=== PATIENT | female | born 1940 | race Caucasian/White ===

== ENCOUNTER 2017-10-05 07:00 | Inpatient (IN) | payer OTHER, MEDICARE ==
[~2017-10-05] VITALS: Ht 157.5 cm; Wt 51.3 kg
[~2017-10-05 07:00] MED LIST: ASPIRIN EC81 M1 PO; FOLIC ACID1 M1 PO; FOSAMAX70 M1 PO; METAMUCIL PACK3.4 GM PO; METHOTREXATE2.5 M2 PO; MULTIVITAMINS1 EAC9 PO; PLAQUENIL200 M1 PO; PRAVACHOL20 M2 PO; VITAMIN D3400 UNI1 PO
--- NOTE | 2017-10-10 11:16 | Admission Core Measures ---
Acute Coronary Syndrome (CM) ACS Core Measures Acute Coronary Syndrome Diagnosis No Congestive Heart Failure (NEW) CHF Core Measures Congestive Heart Failure Diagnosis No Cerebrovascular Accident (NEW) CVA Core Measures CVA/TIA Diagnosis No Venous Thromboembolism VTE Core Erin (View Protocol) VTE Risk Factors Surgery No Mechanical VTE Prophylaxis d/t N/A MechProphylax Ordered No VTE Pharm Prophylaxis d/t NA PharmProphylax ordered Problem List As ranked by this Provider includes Assessment & Plan 1. Rectal prolapse HOME MEDS Home Med List Alendronate Sodium (Fosamax) 70 MG TABLET 1 TAB PO QW OSTEOPORSIS (Reported) Aspirin (Ecotrin*) 81 MG TABLET.DR 1 TAB PO DAILY SUPPLEMENT (Reported) Cholecalciferol (Vitamin D3) (Vitamin D3) 400 UNIT TABLET 2 TAB PO DAILY SUPPLEMENT (Reported) Folic Acid 1 MG TABLET 1 TAB PO DAILY SUPPLEMENT (Reported) Hydroxychlorquine (Plaquenil) 200 MG TABLET 1 TAB PO BID ARTHRITIS (Reported) Methotrexate 2.5 MG TABLET 6 TAB PO QW ARTHRITIS (Reported) Multiple Vitamin (Multivitamins) 1 EACH TABLET 1 TAB PO DAILY SUPPLEMENT ( Reported) Pravastatin Sodium (Pravachol) 20 MG TABLET 1 TAB PO DAILY CHOLESTEROL ( Reported)
--- NOTE | 2017-10-10 11:17 | Surg Short-stay <48hrs Dis Sum ---
Visit Information Visit Dates Admission Date: 10/10/17 Discharge Date: 10/12/17 Surgical Short Stay DC Summary Admission Diagnosis: Rectal prolapse Final Diagnosis: Same s/p robotic sigmoidectomy, rectopexy Procedure(s): Robotic rectopexy with sigmoidectomy Summary/Significant Findings: Electively scheduled robotic rectopexy, sigmoidectomy on 10/10/[address] Jerez for rectal prolapse. ERAS protocol initiated preop and continued postop. Started on clears and advanced as tolerated with return of bowel function. At the time of hospital discharge, vital signs were stable, neurovascular status was intact and pain was controlled with the use of oral pain medications. Condition at Discharge: Stable Discharge Disposition: home or self care Discharge instructions provided to patient/family: Yes Post discharge follow-up plan: Follow up in 1-[address] Jerez
--- NOTE | 2017-10-10 11:52 | Operative Report ---
Operative/Inv Procedure Report Surgery Date: 10/10/17 Name of Procedure: Robotic rectopexy with sigmoidectomy Pre-Operative Diagnosis: Rectal prolapse Post-Operative Diagnosis: Rectal prolapse Estimated Blood Loss: scant Surgeon/Chronic Care Nurse: Andre Jerez Jr., DO Anesthesia: general endotracheal tube, block Monitors: Per routine Implants: None Urine Output: Adequate Drains: None Specimens: Sigmoid colon with stapler donuts Complications: None Condition: Good Operative Indication: This is a 76-year-old female who was originally referred to me for rectal pressure. Workup revealed initially internal prolapse / rectal intussusception. She stops developing full-thickness rectal prolapse. She had near constant symptoms from the prolapse while awake barely pressure and discomfort. So after discussing options we decided to proceed with proctopexy and likely sigmoidectomy. The patient underwent preoperative risk assessment and clearance. She was scheduled for surgery Operative/Procedure Note Note: On the day prior to her surgery she did a bowel prep including oral laxatives and oral antibiotics The morning of her surgery she drank 12 ounces just prior to coming to the hospital. When she arrived at the hospital she received ERAS lesions including Neurontin, Tylenol and Entereg. She was taken to the operating room and underwent induction of general anesthesia and placement of endotracheal tube. Kinney catheter was placed and she see bilateral tap blocks performed by the anesthesia department. She was converted to lithotomy position in [facility] and was secured to the bed both arms tucked. The abdomen and perineum were prepped and draped in usual fashion. We can ask the abdominal cavity using a Veress needle technique which was inserted into the midclavicular line just subcostal on the left. The robotic ports were placed in the standard fashion. #1, 2 and 3 ports were 8 mm and the #4 port was 12 mm. Additionally a peer support was placed in the right lower quadrant for the anesthesiologist assistant. The patient was placed in Trendelenburg right side down some of the bowel out of the pelvis. The robot was docked then I began the dissection. I incised the peritoneum to the right of the rectosigmoid at the sacral promontory into the avascular space of the rectum. I developed a space medially into the left ureter was identified and then I developed the space all the way down to the levators posteriorly. The lateral [place] was taken down on the right partly with electrocautery and partly with the vessel sealer and then the lateral stalks were taken down on the left in the same fashion. The anterior and was not dissected. The vascular pedicle was identified and isolated. Both ureters were identified. 3 mesenteric pedicle was then skeletonized and the vessels were taken distal to the takeoff of the left colic and it appeared also that I was leaving at least one sigmoidal branch. The vessels were divided with the robotic vessel sealer. I chose my a distal site of transection at the rectosigmoid. The mesentery was cleared here using the vessel sealing device exposing the rectal wall. A robotic 45 mm blue AMAN stapler was used to divide the bowel. Next I pulled the sigmoid down into the pelvis and marked the bowel were I felt the proximal transection should take place. A leida was performed with a 2-0 Vicryl suture. The end of the transected bowel was grasped with a lap scopic locking grasper and the robot was undocked. A 4 cm Pfannenstiel incision was placed 2 finger breadths suprapubic. After entering the peritoneal cavity a wound protector was placed. The bowel was easily pulled through this incision. Once the bowel was completely pulled through the incision I decided on my proximal site of transection just proximal/ cephalad to the suture. The mesentery was cleared here partly with electrocautery and partly ligating and dividing larger bundles of tissue. I then sharply divided the bowel in the sigmoid was removed from the field. A handsewn [place] was performed with 2-0 Prolene suture. A 25 EEA's size was chosen for the anastomosis and the anvil of the stapler was placed into the lumen of the bowel. First and was tied snugly around the PEG of the anvil in the reduced back into the abdominal cavity. The fascia at the appendiceal port was then closed. Versed the peritoneum was closed with a running 2-0 Vicryl suture and then the fascia was closed with a running 0 PDS suture. The EEA sizers and then the EEA stapler passed transanally. The stapler spike was advanced emerged to the of midline slightly posterior. The 2 ends of the stapler lap scopic we mated the stapler was completely closed and allowed to settle for 30 seconds. The stapler was armed and fired. The stapler was opened and retrieved in 2 excellent stapler donuts on the device. A rigid sigmoidoscopy was performed after filling the pelvis with sterile saline and occluding the bowel to the anastomosis. There was no evidence of air leak and from the luminal side the anastomosis appeared intact without bleeding. Next the robot was redock. The rectum was gently grasped and pulled cephalad. The rectopexy was then performed. Alternating 2-0 Vicryl and 2-0 silk sutures were placed through the right lateral stalk of the rectum. The sutures were then sewn to the sacral fascia. After placing 5 total sutures I was pleased with the rectopexy. The ports were removed under direct visualization. Robot was undocked. The Pfannenstiel incision was closed with skin nini. The port incisions were closed subcuticular 4-0 Monocryl followed by skin glue. A sterile island dressing was placed over the appendiceal vision. The patient was converted back to supine next been operating room and taken recovery area in good condition. He tolerated the procedure well and at the end of this operational all needle sponges and Schmidts were accounted for.
[2017-10-10 14:24] VITALS: BP 100/54
[2017-10-10 16:00] VITALS: BP 110/50
--- NOTE | 2017-10-10 17:44 | PN- General Surgery ---
Subjective Subjective: POST-OP NOTE No complaints. Denies pain. Tolerating sips of clears. No nausea. Tired but resting comfortably. Not yet out of bed. No dizziness. No shortness of breath. No chest pains. Objective Vital Signs and I&Os Vital Signs Date Time Temp Pulse Resp B/P B/P Pulse O2 O2 Flow FiO2 Mean Ox Delivery Rate 10/10 1430 97 Nasal 2.0L Cannula 10/10 1424 97.6 74 18 100/54 97 Nasal 2.0L Cannula Intake & Output 10/10 1600 10/10 0800 10/10 0000 10/09 1600 10/09 0800 10/09 0000 Intake Total Output Total 675 Balance -675 Output, Urine 675 Patient 113 lb Weight Weight Bed scale Measurement Method Physical Exam: General - alert. sleepy. no acute distress. Lungs - clear bilaterally. no w/r/r. Cardiac - s1s2. reg. Abdomen - soft. incisions well approximated with skin glue. dressing c/d/i. no drains. Extremities - warm bilaterally. no c/c/e. calves soft and nontender b/l. athrombics active. Current Medications: Current Medications Sig/Matias Start time Last Medication Dose Route Stop Time Status Admin Acetaminophen 1,000 MG Q6P PRN 10/10 1430 AC PO Acetaminophen 1,000 MG ONCE ONE 10/10 744 DC PO 10/10 745 Acetaminophen 1,000 MG .STK-MED ONE 10/10 722 DC IV 10/10 0624 Alvimopan 12 MG BID 10/10 2100 AC PO Alvimopan 12 MG ONCE ONE 10/10 0745 DC PO 10/10 0646 Cholecalciferol 800 IU DAILY 10/11 0900 AC PO Dexamethasone 4 MG .STK-MED ONE 10/10 722 DC IM 10/10 0624 Dexmedetomidine HCl 200 MCG .STK-MED ONE 10/10 0818 DC IV 10/10 0819 Dextrose/Sodium 1,000 ML .Q20H 10/10 1430 AC 10/10 Chloride IV 1426 Fentanyl Citrate 250 MCG .STK-MED ONE 10/10 0622 DC IM 10/10 0623 Folic Acid 1 MG DAILY 10/11 0900 AC PO Gabapentin 200 MG TID 10/10 1400 AC 10/10 PO 1626 Gabapentin 600 MG ONCE ONE 10/10 0745 DC PO 10/10 0746 Heparin Sodium 5,000 UNIT Q8 10/10 2200 AC (Porcine) SC Hydroxychloroquine 200 MG BID 10/10 2100 AC Sulfate PO Ketamine HCl 50 MG .STK-MED ONE 10/10 722 DC IM 10/11 723 Midazolam HCl 5 MG .STK-MED ONE 10/10 721 DC IM 10/10 722 Morphine Sulfate 8 MG .STK-MED ONE 10/10 721 DC IM 10/10 722 Multivitamins 1 TAB DAILY 10/11 0900 AC PO Non-Formulary 0 SEE ADMIN CRITERIA 10/10 143 CAN Medication ANY Ondansetron HCl 4 MG Q6P PRN 10/10 1430 AC IV Oxycodone HCl 5 MG Q4-6 PRN PRN 10/10 1430 AC PO Pravastatin Sodium 20 MG 1700 10/10 1700 AC 10/10 PO 1626 Psyllium Hydrophilic 1 PAC DAILY 10/11 0900 AC Mucilloid PO Assessment/Plan Assessment/Plan This 76 year old female with history of lupus is POD#0 s/p robotic rectopexy with sigmoidectomy for rectal prolapse clears as tolerated pain control as ordered, following eras protocol hep sc - dvt ppx oob/ambulation entereg BID ok to resume plaquenil for lupus d/c chirstianson in am f/u am labs d/c planning, possibly home tomorrow will d/w Core Measures Venous Thromboembolism VTE Risk Factors Surgery No Mechanical VTE Prophylaxis d/t N/A MechProphylax Ordered No VTE Pharm Prophylaxis d/t NA PharmProphylax ordered
[2017-10-10 18:00] VITALS: BP 110/50
[2017-10-10 21:38] VITALS: BP 106/62
[2017-10-11 06:44] VITALS: BP 102/62
--- NOTE | 2017-10-11 07:56 | PN- General Surgery ---
Jean Claude Gilbert 10/11/17 0735: Subjective Subjective: Patient reports mild postoperative pain. She offers no other complaints. She is tolerating clear liquids without any nausea or vomiting. She denies ambulating since surgery. She reports walking with orthodics an a cane. She reports having a liquid bm late last night. Objective Vital Signs and I&Os Vital Signs Date Time Temp Pulse Resp B/P B/P Pulse O2 O2 Flow FiO2 Mean Ox Delivery Rate 10/11 0644 98.2 78 20 102/62 99 10/11 0000 Nasal 2.0L Cannula 10/10 2138 98.1 97 18 106/62 100 Room Air 10/10 1814 Nasal 2.0L Cannula 10/10 1800 97.6 69 20 110/50 97 Nasal Cannula 10/10 1600 Nasal 2.0L Cannula 10/10 1430 97 Nasal 2.0L Cannula 10/10 1424 97.6 74 18 100/54 97 Nasal 2.0L Cannula Intake & Output 10/11 0800 10/11 0000 10/10 1600 10/10 0800 10/10 0000 10/09 1600 Intake Total 640 1050 Output Total 400 3700 675 Balance 240 -2650 -675 Intake, IV 400 350 Intake, Oral 240 700 Output, Urine 400 3700 675 Patient 113 lb Weight Weight Bed scale Measurement Method Physical Exam: Gen - resting comfortably in nad Cardiac - S1S2 noted Lungs - CTAB Abd - suprapubic dressing c/d/i, 5 lap incisions closed with internal sutures and dermabond healing well with no signs of infection, bowel sounds present, appropriately tender rupinder-incisionally, no rebound or guarding noted - christianson in place with clear urine, 400 cc in last shift Ext - alps in place, no edema or calf tenderness Current Medications: Current Medications Sig/Matias Start time Last Medication Dose Route Stop Time Status Admin Acetaminophen 1,000 MG Q6 10/11 1200 AC PO Acetaminophen 1,000 MG Q6P PRN 10/10 1430 DC PO Acetaminophen 1,000 MG ONCE ONE 10/10 0745 DC PO 10/10 0746 Alvimopan 12 MG BID 10/10 2100 AC 10/10 PO 2143 Alvimopan 12 MG ONCE ONE 10/10 0745 DC PO 10/10 0746 Cholecalciferol 800 IU DAILY 10/11 0900 AC PO Dexmedetomidine HCl 200 MCG .STK-MED ONE 10/10 0818 DC IV 10/10 0819 Dextrose/Sodium 1,000 ML .Q20H 10/10 1430 AC 10/10 Chloride IV 1426 Folic Acid 1 MG DAILY 10/11 09 AC PO Gabapentin 200 MG TID 10/10 1400 AC 10/10 PO 2143 Gabapentin 600 MG ONCE ONE 10/10 0745 DC PO 10/10 0746 Heparin Sodium 5,000 UNIT Q8 10/10 2200 AC 10/11 (Porcine) SC 0516 Hydroxychloroquine 200 MG BID 10/10 2100 AC 10/10 Sulfate PO 2142 Multivitamins 1 TAB DAILY 10/11 0900 AC PO Non-Formulary 0 SEE ADMIN CRITERIA 10/10 1430 CAN Medication ANY Ondansetron HCl 4 MG Q6P PRN 10/10 1430 AC IV Oxycodone HCl 5 MG Q4-6 PRN PRN 10/10 1430 AC 10/11 PO 0026 Pravastatin Sodium 20 MG 1700 10/10 1700 AC 10/10 PO 1626 Psyllium Hydrophilic 1 PAC DAILY 10/11 0900 AC Mucilloid PO Assessment/Plan Assessment/Plan 76 F POD 1 s/p robotic rectopexy with sigmoidectomy due to rectal prolapse, recovering well Advance to fulls, d/c IVF Pain regimen, ERSA protocol Home meds on board DVT ppx - hsq, restart asa D/c christianson F/u labs Encourage IS, ambulation Anticipate d/c within 24-48 hours Will d/w Dr. Jerez Core Measures Venous Thromboembolism VTE Risk Factors Surgery No Mechanical VTE Prophylaxis d/t N/A MechProphylax Ordered No VTE Pharm Prophylaxis d/t NA PharmProphylax ordered Andre Jerez DO 10/11/17 0817: Attending MD Review Statement Attending Statement Attending Assessment/Plan: Patient looks well postoperatively 1 Agree with PA assessment and plan DC Christianson advance to full liquids this morning DC IV fluids The patient tolerate full this morning then advanced a low fiber this afternoon Anticipate discharge home tomorrow
--- NOTE | 2017-10-11 13:25 | Patient Discharge Instructions ---
Discharge Instructions General Discharge Information You were seen/treated for: Rectal prolapse You had these procedures: Robotic rectopexy with sigmoidectomy Watch for these problems: Increased pain, fever > 101.3, chills, redness, swelling or drainage Call Surgeon to remove: [place] No bath, but you may shower: Yes Other wound care: Keep incisions clean an dry, change dressing daily as needed Diet Continue normal diet: No Recommended Diet: Low Residue Activity Full Activity/No Limits: No Activity Self Limited: Yes Pounds, do NOT lift more than: 10 (x 4 weeks) Acute Coronary Syndrome Inclusion Criteria At DC or during hospital stay patient has or had the following: ACS DIAGNOSIS No Discharge Core Measures Meds if any: Prescribed or Continued at Discharge Meds if any: NOT Prescribed or Continued at Discharge Congestive Heart Failure Inclusion Criteria At DC or during hospital stay patient has or had the following: CHF DIAGNOSIS No Discharge Core Measures Meds if any: Prescribed or Continued at Discharge Meds if any: NOT Prescribed or Continued at Discharge Cerebrovascular accident Inclusion Criteria At DC or during hospital stay patient has or had the following: CVA/TIA Diagnosis No Discharge Core Measures Meds if any: Prescribed or Continued at Discharge Meds if any: NOT Prescribed or Continued at Discharge Venous thromboembolism Inclusion Criteria VTE Diagnosis No VTE Type NONE VTE Confirmed by (Test) NONE Discharge Core Measures - Per Current guidelines, there needs to be overlap - treatment for the first 5 days of Warfarin therapy. - If discharged on Warfarin prior to 5 days of - overlap therapy, the patient will need to be - assessed for post discharge needs including - *Post discharge parental anticoagulation - *Warfarin and/or parental anticoagulation education - *Follow up date to check INR post discharge At least 5 days overlap therapy as Inpatient No Meds if any: Prescribed or Continued at Discharge Note: Overlap Therapy is Warfarin and Anticoagulant Meds if any: NOT Prescribed or Continued at Discharge
[2017-10-11 14:29] VITALS: BP 104/66
[2017-10-11 14:51] LABS: ABSOLUTE BASOPHIL COUNT 0 /CUMM (0.0-0.2); ABSOLUTE EOSINOPHIL COUNT 0 /CUMM (0.0-0.7); ABSOLUTE LYMPH COUNT 1.2 /CUMM (1.2-3.4); ABSOLUTE MONOCYTE COUNT 0.9 /CUMM (0.10-0.60); BASOPHIL % 0.2 % (0.0-2.0); EOSINOPHIL % 0 % (0-5); GRANULOCYTE % 83.6 % (42.2-75.2); HEMATOCRIT 31.7 % (37-47); MEAN CORPUSCULAR HGB 34.1 PG (27.0-31.0); MEAN CORPUSCULAR HGB CONC 34.8 G/DL (33.0-37.0); MEAN CORPUSCULAR VOLUME 97.9 FL (81.0-99.0); MEAN PLATELET VOLUME 8.4 FL (7.4-10.4); PLATELET COUNT 195 /CUMM (130-400); RBC DISTRIBUTION WIDTH 14.4 % (11.5-14.5); RED BLOOD CELL CT 3.24 /CUMM (4.20-5.40); WHITE BLOOD CELL COUNT 13.1 /CUMM (4.8-10.8)
[2017-10-11 22:34] VITALS: BP 108/61
[2017-10-12 06:30] VITALS: BP 119/68
--- NOTE | 2017-10-12 08:48 | PN- General Surgery ---
See Addendum Subjective Subjective: No events overnight. Patient states to be feeling well this am. Tolerating her low residue diet without nausea or emesis. Denies any fevers, chills, chest pain , or SOB. Voiding freely, passing flatus, and having liquid BMs. Does state she notices mild blood streaks on the toilet paper when wiping but no blood in her stool or in the toilet bowel. Ambulating with her cane. Objective Vital Signs and I&Os Vital Signs Date Time Temp Pulse Resp B/P B/P Pulse O2 O2 Flow FiO2 Mean Ox Delivery Rate 10/12 0630 98.4 77 18 119/68 99 Room Air 10/11 2234 98.5 78 20 108/61 98 Room Air 10/11 1429 98.4 78 20 104/66 94 Room Air Intake & Output 10/12 1600 10/12 0800 10/12 0000 10/11 1600 10/11 0800 10/11 0000 Intake Total 240 480 491 144 0583 Output Total 253 303 4707 Balance 240 -420 840 240 -2650 Intake, IV 100 400 350 Intake, Oral 240 480 740 240 700 Number 1 1 Bowel Movements Output, Urine [phone] Physical Exam: Afebrile, VSS. Cardiac: RRR Pulmonary: CTAB Abdominal: Incisions c/d/i, skin glue in place. Lower abdominal dressing taken down. Incision intact, nini in place, no erythema or edema. + BS, soft, non distended, mild appropriate incisional tenderness to palpation. No rebound or guarding. No LE edema. Assessment/Plan Assessment/Plan A/P: 76 y/o F POD#2 s/p robotic rectopexy with sigmoidectomy due to rectal prolapse, recovering well. - Continue low residue diet - PO pain control, ERSA protocol - Continue home medications - Encourage OOB/IS/Ambulation - Plan for d/c home this am, son will be at home with her - Follow up with Dr. Jerez in 1 week - Pt d/w Dr. Jerez who agrees with above plan Core Measures Venous Thromboembolism VTE Risk Factors Surgery No Mechanical VTE Prophylaxis d/t N/A MechProphylax Ordered No VTE Pharm Prophylaxis d/t NA PharmProphylax ordered
[2017-10-12] MEDS ORDERED: OXYCODONE HCL5 M1 PO ×2 (08:54→11:00)
== END 2017-10-12 11:44 | disposition home health service (06) | DRG 331 ==
LOC: 2NB 10-10 02:42 → SDA 10-10 02:42 → ENRESERV 10-10 11:52 → ENTRNSPT 10-10 13:49 → EDTRNSPT 10-10 13:53 → EDTRNSPTSTS 10-10 13:53 → 2NB 10-10 14:15 → CMPTRNSPT 10-10 14:19 → ENPENDDIS 10-12 09:40 → 2NB 10-12 11:44
PROVIDERS: Physician Assistant Surgical
PROC: 8E0W4CZ Robotic Assisted Procedure of Trunk Region, Percutaneous Endoscopic Approach (ICD-10-PCS; principal; 2017-10-11)
PROC: 0DJD8ZZ Inspection of Lower Intestinal Tract, Via Natural or Artificial Opening Endoscopic (ICD-10-PCS; principal; 2017-10-11)
PROC: 0DQP4ZZ Repair Rectum, Percutaneous Endoscopic Approach (ICD-10-PCS; principal; 2017-10-11)
PROC: 0D1N4ZP Bypass Sigmoid Colon to Rectum, Percutaneous Endoscopic Approach (ICD-10-PCS; principal; 2017-10-11)
PROC: 3E0T3BZ Introduction of Anesthetic Agent into Peripheral Nerves and Plexi, Percutaneous Approach (ICD-10-PCS; principal; 2017-10-11)
DX: K62.3 Rectal prolapse (principal); M32.9 Systemic lupus erythematosus, unspecified; K21.9 Gastro-esophageal reflux disease without esophagitis; M19.90 Unspecified osteoarthritis, unspecified site; E78.5 Hyperlipidemia, unspecified; M41.9 Scoliosis, unspecified
CPT/HCPCS: 2NBP; 36592; 82436; 87086; C9290; C9399; J0131; J0690; J1100; J1644; J2405; J3490; J7042